=== PATIENT | male | born 1980 | race Caucasian/White ===

== ENCOUNTER 2022-03-17 16:34 | Emergency (ER) | payer BC, SELFPAY ==
[2022-03-17 16:40] VITALS: BP 146/90; PULSE 82; RESP 20; TEMP 36.2; O2SAT 97; BMI 35.1
--- NOTE | 2022-03-17 17:04 | ED.GENADULT ---
HPI - General Adult General Time Seen by Provider: 17:05 Date Seen: 03/17/22 Chief complaint: Nausea/Vomiting Stated complaint: Vomiting blood Time Seen by Provider: 03/17/22 16:47 Source: patient and RN notes reviewed Mode of arrival: ambulatory Limitations: no limitations History of Present Illness HPI narrative: Patient is a 41-year-old male coming in with pain in his chest after food bolus impaction and subsequent vomiting with some bloody emesis. About an hour ago he was eating in ate some meat. It became stuck knee points to his lower central chest worries feeling the pain. He tried drinking water to get it to pass. He kept vomiting the water back up. After about 10 minutes the pain really intensified, he became hot and sweaty, went outside. He attempted to drink more water and that is when he had emesis with bloody looking water. It was not karen blood it was water that he was vomiting back up. There was blood within it however. That did frightened him. He is still having pain in the same area. He takes an aspirin daily for cardiac disease. He has had a total of 4 stents over the last 4 years. Last stent placement was 2 years ago. He does have congestive heart failure complicating his heart disease. This does not have any features of cardiac disease for him, happened after food bolus impaction. He has not tried drinking for a while, it is unclear if this is past or not. Is still feeling pain however. He does state that he has significant heartburn for which he takes omeprazole [id number] frequently. He has never had a prior food bolus impaction, denies any dysphagia leading up to this. Denies any associated abdominal pain. Related Data Home Medications Medication Instructions Recorded Confirmed atorvastatin 40 mg tablet mg 03/17/22 bupropion HCl 150 mg 24 hr tablet, mg PO 03/17/22 extended release carvedilol 12.5 mg tablet mg 03/17/22 carvedilol 6.25 mg tablet mg 03/17/22 citalopram 10 mg tablet mg 03/17/22 dapagliflozin 10 mg tablet mg 03/17/22 (Farxiga) sacubitril 24 mg-valsartan 26 mg tab 03/17/22 tablet (Entresto) spironolactone 25 mg tablet mg 03/17/22 Previous Rx's Medication Instructions Recorded omeprazole 40 mg capsule,delayed 40 mg PO DAILY 30 days #60 caps 03/17/22 release Allergies Allergy/AdvReac Type Severity Reaction Status Date / Time No Known Drug Allergies Allergy Verified 03/17/22 16:44 Review of Systems Status of ROS: Reports: 6 or more systems reviewed and unremarkable except as noted in History and below PFSH PFSH Social History Smoking Status: Never smoker Do you use any of these nicotine containing products: None Second hand tobacco smoke exposure: No How often do you have a drink containing alcohol: monthly or less How many standard drinks containing alcohol do you have on a typical day: 1 or 2 How often do you have six or more drinks on one occasion: Never AUDIT-C Alcohol total score: 1 Non-prescribed substance use: denies use Exam Const: Vital Signs, click to edit/add: Vital Signs - 24 hr 03/17/22 16:40 Temperature 97.2 F L Pulse Rate [Pulse Oximeter] 82 Respiratory Rate 20 Blood Pressure [Ri ght Upper Arm] 146/90 H Pulse Oximetry 97 Oxygen Delivery Me thod Room Air Documenting provider has reviewed patient's vital signs: yes Common normals: no apparent distress, average body habitus, oriented x3, no limitations and healthy appearing General appearance: cooperative and other (Seems slightly uncomfortable, slightly sweaty) HENMT: Common normals: normocephalic, head/scalp atraumatic, hearing grossly normal bilaterally, external ears normal, EAC's normal, nasal mucous membranes and turbinates normal, moist oral mucous membranes, oropharynx normal, dentition normal and gingiva normal Head and scalp: normocephalic and atraumatic Nose: nasal mucous membranes and turbinates normal External ear: external ears normal External auditory canal: EAC's normal Eye: Common normals: PERRL, EOMs intact bilaterally, conjunctivae normal and no scleral icterus Conjunctiva: conjunctiva(e) normal Pupil: PERRL Neck & C-Spine: Common normals: full ROM, no lymphadenopathy, supple, no meningeal signs, no JVD and thyroid normal Thyroid: thyroid normal Resp: Common normals: normal respiratory effort, no retractions, no use of accessory muscles and clear to auscultation bilaterally Auscultation: clear to auscultation bilaterally Cardio: Common normals: no JVD, regular rate, regular rhythm, S1 normal heart sound, S2 normal heart sound, no gallops, no clicks and no murmurs Rate: regular rate Rhythm: regular rhythm Heart sounds: S1 normal and S2 normal GI: Common normals: Normal to inspection, nondistended, normoactive bowel sounds present, soft to palpation, non-tender, no hepatosplenomegaly and no masses Palpation: soft and no hepatosplenomegaly Neuro: Common normals: oriented x3 Meningeal signs: no meningeal signs Course Course Hospital Course: We will place patient cardiac monitoring, established an IV and give him 1 mg IV glucagon. We can see if that does not work if the radiology effervescent drink/pop rocks will resolve this. Reviewed with patient that recurrent vomiting and the food bolus impaction can cause esophageal irritation. As long as he is not having ongoing karen bleeding, if we get this resolved, this should repair on its own. If these maneuvers do not work, will need to see if an EGD can be done. We do not have on-call EGD coverage but we certainly can check to see if there is anyone available. If not I can check with [facility] to see if they could accommodate the patient. Will also check some basic labs and do point of care troponin on him just to ensure that there is no concomitant coronary artery disease with this. Reevaluation(s) Reevaluation #1: Patient was able to swallow the pop rocks from Radiology. Is able to drink some liquids. He still having significant discomfort. Did offer him pain management. He is declining at this point. We did not give glucagon and we will hold off at this point. Am awaiting his labs and his EKG. Did discuss with him that if his pain is continuing and he is able to swallow, we may need to consider CT to further evaluate the esophagus to rule out perforation. Time: 17:53 Reevaluation #2: Patient is actually feeling much better at this time. Pain is resolving. Discussed need to be on a proton pump inhibitor for the reflux that he has been having. He will need to follow up and get an EGD scheduled. We discussed food recommendations for the short time here right after this food bolus impaction. Time: 18:23 Vital Signs Vital signs: Initial Vital Signs Temperature 97.2 F L 03/17/22 16:40 Temperature Source Temporal Artery Scan 03/17/22 16:40 Pulse Rate 82 03/17/22 16:40 Respiratory Rate 20 03/17/22 16:40 Blood Pressure 146/90 H 03/17/22 16:40 Blood Pressure Mean 108 03/17/22 16:40 Blood Pressure Position Supine 03/17/22 16:40 Pulse Oximetry 97 03/17/22 16:40 Oxygen Delivery Method 03/17/22 16:40 Vital Signs Temperature 97.2 F L 03/17/22 16:40 Pulse Rate 82 03/17/22 16:40 Respiratory Rate 20 03/17/22 16:40 Blood Pressure 146/90 H 03/17/22 16:40 Pulse Oximetry 97 03/17/22 16:40 Oxygen Delivery Method 03/17/22 16:40 Temperature 97.2 F L 03/17/22 16:40 Pulse Rate 82 03/17/22 16:40 Respiratory Rate 20 03/17/22 16:40 Blood Pressure 146/90 H 03/17/22 16:40 Pulse Oximetry 97 03/17/22 16:40 Oxygen Delivery Method 03/17/22 16:40 Medical Decision Making Lab Data Lab results reviewed: Yes I reviewed the patient's lab results Labs: Lab Results 03/17/22 03/17/22 03/17/22 Range/Units 17:30 17:30 17:30 WBC 6.31 (4.50-11.00) K/uL RBC 4.79 (4.30-5.90) m/uL Hgb 15.6 (13.5-17.5) gm/dL Hct 45.1 (37.0-53.0) % MCV 94 (80-100) fL MCH 33 (26-34) pg MCHC 35 (32-36) gm/dL RDW Coeff of Michael 13.0 (11.5-15.5) % Plt Count 272 (140-440) K/uL Neut % (Auto) 69.0 (42.0-72.0) % Lymph % (Auto) 18.4 L (20-44) % [place] % (Auto) 7.1 (0.0-11.0) % Eos % (Auto) 4.1 (0.0-7.0) % Baso % (Auto) 0.6 (0.0-3.0) % Neut # (Auto) 4.35 (1.7-7.0) K/uL Lymph # (Auto) 1.20 (0.90-2.90) K/uL [place] # (Auto) 0.40 (0.00-0.90) K/UL Eos # (Auto) 0.26 (0.00-0.50) K/uL Baso # (Auto) 0.04 (0.00-0.30) K/uL Abs Immat Gran (auto) 0.05 (0.00-0.30) K/uL Sodium 141 (135-149) mmol/L Potassium 3.9 (3.6-5.1) mmol/L Chloride 105 (96-114) mmol/L Carbon Dioxide 24 (20-32) mmol/L BUN 14 (5-24) mg/dL Creatinine 0.6 (0.5-1.5) mg/dL Estimated Creat Clear 179.41 Estimated GFR 123 ml/min Glucose 117 H (60-115) mg/dL Calcium 8.9 (8.4-10.6) mg/dL POC Troponin I 0.00 L (0.01-0.04) ng/ml Critical Care Time Critical Care Time Critical Care Time: No Discharge Plan Discharge Clinical Impression: Esophageal obstruction due to food impaction Condition: Stable Instructions: Food Impaction (ED) Additional Instructions: Start omeprazole and take daily. Recommend clear liquids tonight and advance diet to soft foods tomorrow. If you are tolerating this fine, can start to increase food back to regular diet. Chew meat and breads very well. These types of foods are more likely to become obstructive. Need to contact her primary care provider or follow up in clinic next week and have them get you scheduled for an EGD. If you have a recurrent food bolus impaction, please seek re-evaluation. Activity Level: Activity as Tolerated Prescriptions: New omeprazole 40 mg capsule,delayed release(DR/EC) 40 mg PO DAILY 30 Days Qty: 60 0RF No Action atorvastatin 40 mg tablet Label Comments: TAKE ONE TABLET BY MOUTH ONE TIME DAILY AT BEDTIME carvedilol 6.25 mg tablet Label Comments: Take 1 Tablet (6.25 mg) by mouth in the morning and 1 Tablet (6.25 mg) in the evening. Take with meals. No further refills until seen by sabra carvedilol 12.5 mg tablet Label Comments: TAKE ONE TABLET BY MOUTH TWICE A DAY WITH MEALS citalopram 10 mg tablet Label Comments: TAKE ONE TABLET BY MOUTH EVERY DAY IN THE MORNING. spironolactone 25 mg tablet Label Comments: TAKE ONE TABLET BY MOUTH ONE TIME DAILY bupropion HCl 150 mg tablet extended release 24 hr PO Label Comments: TAKE ONE TABLET BY MOUTH EVERY DAY IN THE MORNING. Farxiga 10 mg tablet Label Comments: TAKE ONE TABLET BY MOUTH ONE TIME DAILY Entresto 24-26 mg tablet Label Comments: TAKE 1 TABLET BY MOUTH IN THE MORNING AND THEN 2 TABLETS IN THE EVENING. Follow Up/Referrals: Keyur Carbajal MD [Primary Care Provider] - Stand Alone [facility]: [facility] Inst[facility]
[2022-03-17 17:41] LABS: Basophils Absolute Auto 0.04 K/uL (0.00-0.30); Basophils Percent Auto 0.6 % (0.0-3.0); Eosinophils Absolute Auto 0.26 K/uL (0.00-0.50); Eosinophils Percent Auto 4.1 % (0.0-7.0); Hematocrit 45.1 % (37.0-53.0); Hemoglobin* 15.6 gm/dL (13.5-17.5); Immature Granulocytes Abs Auto 0.05 K/uL (0.00-0.30); Lymphocytes Percent Auto 18.4 % (20-44); Mean Corpuscular HGB Conc 35 gm/dL (32-36); Mean Corpuscular Hemoglobin 33 pg (26-34); Mean Corpuscular Volume 94 fL (80-100); Monocytes Percent Auto 7.1 % (0.0-11.0); Neutrophils Absolute Auto 4.35 K/uL (1.7-7.0); Platelet Count* 272 K/uL (140-440); Red Blood Count 4.79 m/uL (4.30-5.90); White Blood Count* 6.31 K/uL (4.50-11.00)
[2022-03-17 17:43] LABS: Slide Review Reflex No
[2022-03-17] MEDS: PANTOPRAZOLE SODIUM 40 MG INJ IVP (17:43)
[2022-03-17 17:57] LABS: Chloride* 105 mmol/L (96-114)
[2022-03-17 17:58] LABS: Potassium* 3.9 mmol/L (3.6-5.1); Sodium* 141 mmol/L (135-149)
[2022-03-17 18:00] LABS: Creatinine* 0.6 mg/dL (0.5-1.5); Est. Creatinine Clearance* 179.41; Estimated Glomerular Filt Rate 123 ml/min
[2022-03-17 18:01] LABS: Blood Urea Nitrogen* 14 mg/dL (5-24); Calcium* 8.9 mg/dL (8.4-10.6); Carbon Dioxide* 24 mmol/L (20-32); Glucose* 117 mg/dL (60-115)
== END 2022-03-17 18:48 | disposition home or self-care (01) ==
PROVIDERS: Emergency Provider Family Medicine; PCP Family Medicine
DX: K22.2 Esophageal obstruction (principal)
CPT/HCPCS: 36415; 80048; 84484; 85025; 93005; 96374; 99283; 99284; C9113

== ENCOUNTER 2023-08-11 14:47 | Emergency (ER) | payer BC, SELFPAY ==
[2023-08-11 15:00] VITALS: BP 162/105; PULSE 80; RESP 18; TEMP 35.6; O2SAT 96; BMI 33.9
--- NOTE | 2023-08-11 15:31 | ED_ITS ---
HPI - General Adult General Chief complaint: Unspecified Complaint, Adult Stated complaint: Shakey, sweaty, 96F, tip of tongue numb Time Seen by Provider: 08/11/23 15:04 History of Present Illness HPI narrative: This 42-year-old male comes in reporting an episode of lightheadedness with associated subsequent tingling and diaphoresis. He states that he took his blood pressure medicines about half an hour prior to this. This was a larger dose as he forgot to take his medicines last evening. He also states that he had some alcohol last evening. He took his medicine and then about a half an hour later began to feel lightheaded. He started to feel these symptoms as he was driving to the grocery store and decided to return home. He was standing at home when he began to be rather lightheaded. He started walking around his home and this helped somewhat. He also took a drink of a soft drink and then began to feel better. He does not report any symptoms of infection. He did not have any chest pain. He does report a decreased ejection fraction at 40% due to some carotid artery stenosis that has been treated. Currently he states that he feels back to normal. He arrives here with normal vital signs and his blood pressure is a bit elevated. Related Data Home Medications Medication Instructions Recorded Confirmed atorvastatin 40 mg tablet mg 03/17/22 bupropion HCl 150 mg 24 hr tablet, mg PO 03/17/22 extended release carvedilol 12.5 mg tablet mg 03/17/22 carvedilol 6.25 mg tablet mg 03/17/22 citalopram 10 mg tablet mg 03/17/22 dapagliflozin propanediol 10 mg mg 03/17/22 tablet (Farxiga) sacubitril 24 mg-valsartan 26 mg tab 03/17/22 tablet (Entresto) spironolactone 25 mg tablet mg 03/17/22 Previous Rx's Medication Instructions Recorded omeprazole 40 mg capsule,delayed 40 mg PO DAILY 30 days #60 caps 03/17/22 release Allergies Allergy/AdvReac Type Severity Reaction Status Date / Time No Known Drug Allergies Allergy Verified 03/17/22 16:44 Review of Systems Status of ROS: Reports: 10 or more systems reviewed and unremarkable except as noted in History and below Narrative: Constitutional: No fevers, no weight gain or loss. Eyes: No discharge. No vision changes. HENT: No congestion, no sore throat, no ear pain. Cardiovascular: No chest pain, no palpitations. Respiratory: No shortness of breath, no wheezes, no cough. Gastrointestinal: No abdominal pain, no vomiting, no diarrhea. Genitourinary: No dysuria, no hematuria. Musculoskeletal: Normal range of motion. Skin: No rashes, no pruritis. Neurological: No weakness, sensory change, speech change. Endo/Heme/Allergies: No bruising or bleeding. No polydipsia. Pysch: no suicidality, no anxiety, no insomnia. All other systems reviewed and are negative. PFSH PFS Social History Smoking Status: Never smoker Do you use any of these nicotine containing products: None Second hand tobacco smoke exposure: No How often do you have a drink containing alcohol: monthly or less How many standard drinks containing alcohol do you have on a typical day: 1 or 2 How often do you have six or more drinks on one occasion: Never AUDIT-C Alcohol total score: 1 Non-prescribed substance use: denies use service: No Exam Narrative: Exam Narrative: Constitutional: Well-developed, well-nourished, no acute distress. HEENT: Normocephalic, atraumatic. Neck: Normal range of motion. Nontender. Supple. Heart: Regular. No murmurs. Normal rate. Intact distal pulses. Lungs: Clear to auscultation. No chest discomfort. No wheezes, rhonchi, or rales. Abdomen: Normal bowel sounds. Nontender. No rebound tenderness. Genitalia: Deferred. Back: No midline tenderness. Normal range of motion. Extremities: Normal range of motion. No injury. Skin: Intact. No rash. Warm. No erythema or pallor. Neurologic: No altered sensation. No weakness. Alert and oriented. Psychiatric: No suicidality. No anxiety or depression. No insomnia. Nursing notes and vitals signs are reviewed. Const: Vital Signs, click to edit/add: Vital Signs - 24 hr 08/11/23 15:00 Temperature 96.0 F L Pulse Rate [Right Pulse Oximeter] 80 Respiratory Rate 18 Blood Pressure [Ri ght Upper Arm] 162/105 H Pulse Oximetry 96 Oxygen Delivery Me thod Room Air Course Vital Signs Vital signs: Initial Vital Signs Temperature 96.0 F L 08/11/23 15:00 Temperature Source Temporal Artery Scan 08/11/23 15:00 Pulse Rate 80 08/11/23 15:00 Respiratory Rate 18 08/11/23 15:00 Blood Pressure 162/105 H 08/11/23 15:00 Blood Pressure Mean 124 H 08/11/23 15:00 Blood Pressure Position Sitting 08/11/23 15:00 Pulse Oximetry 96 08/11/23 15:00 Oxygen Delivery Method Room Air 08/11/23 15:00 Vital Signs Temperature 96.0 F L 08/11/23 15:00 Pulse Rate 80 08/11/23 15:00 Respiratory Rate 18 08/11/23 15:00 Blood Pressure 162/105 H 08/11/23 15:00 Pulse Oximetry 96 08/11/23 15:00 Oxygen Delivery Method Room Air 08/11/23 15:00 Temperature 96.0 F L 08/11/23 15:00 Pulse Rate 80 08/11/23 15:00 Respiratory Rate 18 08/11/23 15:00 Blood Pressure 162/105 H 08/11/23 15:00 Pulse Oximetry 96 08/11/23 15:00 Oxygen Delivery Method Room Air 08/11/23 15:00 Medical Decision Making MDM Narrative Medical decision making narrative: This patient comes in reporting a near syncopal event. This occurred after taking his antihypertensive medications which he forgot to take the night before. He states that the dosing for the evening medicine is greater than that which she takes in the morning. This appears to be the most significant contributor toward his current symptoms. I did describe other factors that can also contribute toward a feeling of lightheadedness. The patient feels back to normal at this time. His EKG is reassuring as are his vital signs. I did discuss lab and imaging options with the patient which he declined in a process of shared decision making. I recommended that he check his blood pressure readings at home and follow-up with his primary physician. ECG Data Attestation: I personally reviewed and interpreted this ECG as follows: Interpretation: Normal sinus rhythm. Rate is 80 beats per minute. There are no ST or T-wave abnormalities. Discharge Plan Discharge Clinical Impression: Episodic lightheadedness Patient Disposition: Home, Self-Care Condition: Improved Additional Instructions: Continue current plans. Record blood pressures and follow up with primary physician for ongoing management. Return if worsening. Prescriptions: No Action atorvastatin 40 mg tablet Patient Comments: TAKE ONE TABLET BY MOUTH ONE TIME DAILY AT BEDTIME carvedilol 6.25 mg tablet Patient Comments: Take 1 Tablet (6.25 mg) by mouth in the morning and 1 Tablet (6.25 mg) in the evening. Take with meals. No further refills until seen by sabra carvedilol 12.5 mg tablet Patient Comments: TAKE ONE TABLET BY MOUTH TWICE A DAY WITH MEALS citalopram 10 mg tablet Patient Comments: TAKE ONE TABLET BY MOUTH EVERY DAY IN THE MORNING. spironolactone 25 mg tablet Patient Comments: TAKE ONE TABLET BY MOUTH ONE TIME DAILY bupropion HCl 150 mg tablet extended release 24 hr PO Patient Comments: TAKE ONE TABLET BY MOUTH EVERY DAY IN THE MORNING. Farxiga 10 mg tablet Patient Comments: TAKE ONE TABLET BY MOUTH ONE TIME DAILY Entresto 24-26 mg tablet Patient Comments: TAKE 1 TABLET BY MOUTH IN THE MORNING AND THEN 2 TABLETS IN THE EVENING. omeprazole 40 mg capsule,delayed release(DR/EC) 40 mg PO DAILY 30 Days Qty: 60 0RF Follow Up/Referrals: Keyur Carbajal MD [Primary Care Provider] - Stand Alone Forms: [employer] Info Instructions
== END 2023-08-11 15:49 | disposition home or self-care (01) ==
LOC: ED 15:48
PROVIDERS: Emergency Provider Emergency Medicine Emergency Medical Services; PCP Family Medicine
DX: R42 Dizziness and giddiness (principal)
CPT/HCPCS: 99284